=== PATIENT | female | born 1985 | race Caucasian/White ===

== ENCOUNTER 2021-02-21 14:48 | Inpatient (IN) | payer BC ==
[~2021-02-21] VITALS: Ht 154.9 cm; Wt 66.2 kg
[2021-02-21 18:19] LABS: HEMOGLOBIN 12.8 gm/dl (12.3-15.3); RED BLOOD COUNT 4.24 M/UL (4.00-5.10); WHITE BLOOD COUNT 19.8 K/UL (4.5-11.0)
[2021-02-21 18:41] LABS: BUN/CREATININE RATIO 11 (0-10)
[2021-02-21] MEDS ORDERED: MILI 0.25-0.031 EACH PO (22:01)
[2021-02-22 04:25] LABS: WHITE BLOOD COUNT 19.6 K/UL (4.5-11.0)
[2021-02-22 04:27] LABS: HEMOGLOBIN 10.7 gm/dl (12.3-15.3); RED BLOOD COUNT 3.6 M/UL (4.00-5.10)
[2021-02-22 04:45] LABS: BUN/CREATININE RATIO 12 (0-10)
[2021-02-22 10:35] LABS: BUN/CREATININE RATIO 11 (0-10)
[2021-02-23 05:14] LABS: RED BLOOD COUNT 3.7 M/UL (4.00-5.10)
[2021-02-23 05:31] LABS: WHITE BLOOD COUNT 14.5 K/UL (4.5-11.0)
[2021-02-23 05:39] LABS: BUN/CREATININE RATIO 8 (0-10)
[2021-02-24 04:40] LABS: HEMOGLOBIN 10.8 gm/dl (12.3-15.3); RED BLOOD COUNT 3.62 M/UL (4.00-5.10)
[2021-02-24 04:47] LABS: WHITE BLOOD COUNT 9.1 K/UL (4.5-11.0)
[2021-02-24 04:59] LABS: BUN/CREATININE RATIO 10 (0-10)
[2021-02-24] MEDS ORDERED: CEFUROXIME500 MG PO (09:46)
== END 2021-02-24 10:55 | disposition home or self-care (01) | DRG 871 ==
LOC: ER1 14:48 → CDU 20:58 → CCU 20:58
PROVIDERS: Internal Medicine Infectious Disease; Physician Assistant; ADMIT Internal Medicine
DX: A41.51 Sepsis due to Escherichia coli [E. coli] (principal); R65.21 Severe sepsis with septic shock; N12 Tubulo-interstitial nephritis, not specified as acute or chronic; E87.6 Hypokalemia; E83.42 Hypomagnesemia; R00.1 Bradycardia, unspecified; Z20.822 Contact with and (suspected) exposure to COVID-19
CPT/HCPCS: 0240U; 36415; 71045; 80048; 80053; 81001; 82962; 83605; 83690; 83735; 84132; 84443; 84703; 85025; 87040; 87077; 87086; 87186; 93005; 96365; 96366; 96367; 96375; 96376; 99285; J0696; J1650; J1885; J2405; J2543; J3475; J3480; J7030; Q9967

== ENCOUNTER 2021-06-25 12:15 | Emergency (ER) | payer BC ==
[~2021-06-25 12:15] MED LIST: CEFUROXIME500 MG PO; MILI 0.25-0.031 EACH PO
[2021-06-25] MEDS ORDERED: ZOFRAN4 MG PO (13:54)
[2021-06-25] MEDS ORDERED: IBU400 MG PO (13:54)
== END 2021-06-25 14:15 | disposition home or self-care (01) ==
LOC: ER1 12:15
DX: U07.1 COVID-19 (principal)
CPT/HCPCS: 0240U; 99283

== ENCOUNTER → 2021-08-23 | Outpatient (CLI) | payer BC ==
[~2021-08-23] MED LIST changes: +IBU400 MG PO; +ZOFRAN4 MG PO
== END ==
LOC: KOH-I 11:21
DX: R05 Cough (principal); M54.9 Dorsalgia, unspecified; M54.2 Cervicalgia
CPT/HCPCS: 71046; 72040; 72070; 72100